=== PATIENT | male | born 1955 | race Caucasian/White ===

== ENCOUNTER 2021-01-16 20:19 | Emergency (ER) | payer OTHER ==
[~2021-01-16] VITALS: Ht 172.7 cm; Wt 86.2 kg
[~2021-01-16 20:19] MED LIST: DISU250; ERYT.5TO OS; HYDACE5 PO; INCARCERATION; NAPR550 PO; OTC PAIN MED
[2021-01-16 21:02] LABS: BASOPHILS ABSOLUTE AUTO 0.05 K/mm3 (0.00-0.23); BASOPHILS PERCENT AUTO 1 % (0-2); EOSINOPHILS ABSOLUTE AUTO 2.03 K/mm3 (0.00-0.68); EOSINOPHILS PERCENT AUTO 23 % (0-6); Hemoglobin 13.8 g/dL (13.5-17.5); IMMATURE GRAN ABSOLUTE AUTO 0.04 K/mm3 (0.00-0.10); IMMATURE GRAN PERCENT AUTO 1 % (0-1); LYMPHOCYTES ABSOLUTE AUTO 1.34 K/mm3 (0.84-5.20); LYMPHOCYTES PERCENT AUTO 15 % (21-46); MONOCYTES ABSOLUTE AUTO 0.65 K/mm3 (0.16-1.47); MONOCYTES PERCENT AUTO 8 % (4-13); Mean Corpuscular HGB 33.2 pg (26.0-34.0); Mean Corpuscular HGB Conc 34.5 g/dL (31.5-36.5); Mean Corpuscular Volume 96 fL (80-100); NEUTROPHILS ABSOLUTE AUTO 4.61 K/mm3 (1.96-9.15); NEUTROPHILS PERCENT AUTO 53 % (41-73); Platelet Count 188 K/mm3 (150-400); RDW Coefficient Variation 13.4 % (11.7-14.2); Red Blood Cell Count 4.16 M/mm3 (4.30-5.90); White Blood Cell Count 8.72 K/mm3 (4.00-11.30)
[2021-01-16 21:25] LABS: Alanine Aminotransfer (ALT/SGP 49 U/L (12-78); Albumin, Blood 3.5 g/dL (3.4-5.0); Albumin/Globulin Ratio 0.9 (0.8-1.8); Alk Phos 97 U/L (50-136); Anion Gap 6 mmol/L (6-16); Aspartate Aminotrans (AST/SGOT 20 U/L (12-37); Bilirubin, Total 0.3 mg/dL (0.1-1.0); Blood Urea Nitrogen 22 mg/dL (8-24); Bun/Creatinine Ratio 19.6 (12.0-20.0); CO2, Blood 25 mmol/L (21-32); Calcium, Blood 8.7 mg/dL (8.5-10.1); Chloride, Blood 106 mmol/L (98-108); Creatinine, Blood 1.12 mg/dL (0.60-1.20); Globulin, Blood 3.7 g/dL (2.2-4.0); Glomerular Filtration Rate >60 (60-); Glucose, Blood 91 mg/dL (70-99); Potassium, Blood 4.3 mmol/L (3.5-5.5); Sodium, Blood 137 mmol/L (136-145); Total Protein, Blood 7.2 g/dL (6.4-8.2); Troponin I <0.015 ng/mL (0.000-0.040)
== END 2021-01-17 00:10 | disposition left against medical advice (07) ==
LOC: ER 20:19
PROVIDERS: Physician Assistant
DX: R07.9 Chest pain, unspecified (principal); Z53.21 Procedure and treatment not carried out due to patient leaving prior to being seen by health care provider
CPT/HCPCS: 71046; 80053; 84484; 85025; 93005; 93010; 99284; 99285-25

== ENCOUNTER 2021-09-14 09:20 | Emergency (ER) | payer OTHER ==
[~2021-09-14] VITALS: Ht 175.3 cm; Wt 88.5 kg
[2021-09-14] MEDS ORDERED: ATORVASTATIN CA40 M1 PO (09:58)
[2021-09-14] MEDS ORDERED: AMLO5 PO (09:58)
[2021-09-14] MEDS ORDERED: METO50 PO (09:58)
[2021-09-14] MEDS ORDERED: CLOP75 PO (09:59)
[2021-09-14] MEDS ORDERED: LISI20 PO (09:59)
[2021-09-14] MEDS ORDERED: LEVO750 PO (10:57)
[2021-09-14] MEDS ORDERED: GUAIFENESIN ER600 MG PO (10:57)
[2021-09-14] MEDS ORDERED: Tessalon200 MG PO (10:57)
== END 2021-09-14 11:25 | disposition home or self-care (01) ==
LOC: ER 09:20
DX: J18.9 Pneumonia, unspecified organism (principal); I10 Essential (primary) hypertension; Z88.8 Allergy status to other drugs, medicaments and biological substances
CPT/HCPCS: 71045; 99284-25; A9270

== ENCOUNTER 2021-10-20 18:33 | Emergency (ER) | payer OTHER ==
[~2021-10-20] VITALS: Ht 172.7 cm; Wt 88.5 kg
[~2021-10-20 18:33] MED LIST changes: +AMLO5 PO; +ATORVASTATIN CA40 M1 PO; +CLOP75 PO; +GUAIFENESIN ER600 MG PO; +LEVO750 PO; +LISI20 PO; +METO50 PO; +Tessalon200 MG PO
[2021-10-20 19:05] LABS: BASOPHILS ABSOLUTE AUTO 0.09 K/mm3 (0.00-0.23); BASOPHILS PERCENT AUTO 1 % (0-2); EOSINOPHILS ABSOLUTE AUTO 0.68 K/mm3 (0.00-0.68); EOSINOPHILS PERCENT AUTO 6 % (0-6); Hematocrit 44.2 % (37.0-53.0); Hemoglobin 15.2 g/dL (13.5-17.5); IMMATURE GRAN ABSOLUTE AUTO 0.07 K/mm3 (0.00-0.10); IMMATURE GRAN PERCENT AUTO 1 % (0-1); LYMPHOCYTES ABSOLUTE AUTO 1.67 K/mm3 (0.84-5.20); LYMPHOCYTES PERCENT AUTO 16 % (21-46); MONOCYTES ABSOLUTE AUTO 0.63 K/mm3 (0.16-1.47); MONOCYTES PERCENT AUTO 6 % (4-13); Mean Corpuscular HGB 33.7 pg (26.0-34.0); Mean Corpuscular HGB Conc 34.4 g/dL (31.5-36.5); Mean Corpuscular Volume 98 fL (80-100); Mean Platelet Volume 9.4 fL (9.1-12.4); NEUTROPHILS ABSOLUTE AUTO 7.62 K/mm3 (1.96-9.15); NEUTROPHILS PERCENT AUTO 71 % (41-73); Platelet Count 275 K/mm3 (150-400); RDW Coefficient Variation 13.6 % (11.7-14.2); RDW Standard Deviation 49.2 fL (35.1-46.3); Red Blood Cell Count 4.51 M/mm3 (4.30-5.90); White Blood Cell Count 10.76 K/mm3 (4.00-11.30)
[2021-10-20 19:40] LABS: Alanine Aminotransfer (ALT/SGP 53 U/L (12-78); Albumin, Blood 3.4 g/dL (3.4-5.0); Alk Phos 89 U/L (50-136); Anion Gap 3 mmol/L (6-16); Aspartate Aminotrans (AST/SGOT 22 U/L (12-37); Bilirubin, Total 0.2 mg/dL (0.1-1.0); Blood Urea Nitrogen 10 mg/dL (8-24); Bun/Creatinine Ratio 13.5 (12.0-20.0); CO2, Blood 23 mmol/L (21-32); Calcium, Blood 8.5 mg/dL (8.5-10.1); Chloride, Blood 109 mmol/L (98-108); Creatinine, Blood 0.74 mg/dL (0.60-1.20); Globulin, Blood 3.4 g/dL (2.2-4.0); Glomerular Filtration Rate >60 (60-); Glucose, Blood 173 mg/dL (70-99); Potassium, Blood 3.9 mmol/L (3.5-5.5); Sodium, Blood 135 mmol/L (136-145); Total Protein, Blood 6.8 g/dL (6.4-8.2); Troponin I <0.015 ng/mL (0.000-0.040)
== END 2021-10-20 20:45 | disposition home or self-care (01) ==
LOC: ER 18:33
PROVIDERS: Physician Assistant
DX: F41.9 Anxiety disorder, unspecified (principal); I10 Essential (primary) hypertension; Z79.899 Other long term (current) drug therapy
CPT/HCPCS: 36415; 71046; 80053; 83880; 84484; 85025; 93005; 93010; 96374; 96375; 99285-25; J1885; J2060

== ENCOUNTER 2022-05-03 06:34 | Day surgery (SDC) | payer MEDICARE, OTHER ==
[~2022-05-03] VITALS: Ht 172.7 cm; Wt 81.0 kg
[~2022-05-03 06:34] MED LIST changes: +Aspir 8181 MG PO; +Chantix1 MG PO; +NITR.4SL SL
--- NOTE | 2022-05-03 09:43 | NUR ---
PT BACK TO RECOVERY ROOM AFTER PROCEDURE, REPORT FROM ABY HERNANDES. PT DENIES PAIN OR DISCOMFORT. RIGHT RADIAL SITE WITH TR BAND AND SPLINT IN PLACE.
--- NOTE | 2022-05-03 11:12 | NUR ---
2cc REMOVED FROM TR BAND. SITE SOFT AND NON-TENDER. NO BLEEDING NOTED.
--- NOTE | 2022-05-03 11:21 | NUR ---
3cc REMOVED. SITE STARTED TO BLEED. 3cc PLACED BACK INTO BAND. BLEEDED STOPPED.
--- NOTE | 2022-05-03 11:58 | NUR ---
PT AMBULATED TO RESTROOM. PT NOW BACK IN BED. PT GIVEN LUNCH TRAY. RADIAL ACCESS SITE SOFT AND NON-TENDER. NO BLEEDING NOTED.
--- NOTE | 2022-05-03 12:15 | NUR ---
2cc REMOVED FROM TR BAND. SITE SOFT AND NON-TENDER. NO BLEEDING NOTED.
--- NOTE | 2022-05-03 12:30 | NUR ---
ALL AIR HAS BEEN SUCCESSFULLY REMOVED FROM TR BAND. NO BLEEDING OR SWELLING NOTED.
--- NOTE | 2022-05-03 13:05 | NUR ---
IV DC'D, CATH INTACT. PT VERBALIZED UNDERSTANDING OF DC INSTRUCTIONS AND FOLLOW UP INFO. RIGHT RADIAL SITE REMAINS SOFT AND NON-TENDER. PT OUT TO CAR VIA WHEELCHAIR.
== END 2022-05-03 13:09 | disposition home or self-care (01) ==
LOC: MHTC 06:34
DX: I25.118 Atherosclerotic heart disease of native coronary artery with other forms of angina pectoris (principal); I11.0 Hypertensive heart disease with heart failure; I50.9 Heart failure, unspecified; E78.5 Hyperlipidemia, unspecified; F17.200 Nicotine dependence, unspecified, uncomplicated; I73.9 Peripheral vascular disease, unspecified; Z88.8 Allergy status to other drugs, medicaments and biological substances; Z86.718 Personal history of other venous thrombosis and embolism
CPT/HCPCS: 76937; 85347; 93454; 99152; 99153; A9270; C1725; C1769; C1874; C1887; C1894; C9600; J1644; J2250; J3010; J7030; J7040; Q9967